=== PATIENT | male | born 2000 | race Asian ===

== ENCOUNTER 2019-04-17 16:25 | Emergency (ER) | payer BC ==
[2019-04-17] MEDS ORDERED: methylPREDNISolone 125 MG* 2 ML VIAL IV ONE (16:32)
[2019-04-17] MEDS ORDERED: Famotidine IV* 10 MG/ML 2 ML (20 mg) IV SLOW PU ONE (16:32)
[2019-04-17] MEDS ORDERED: NS 0.9% 1000 ML** 1,000 ML IV ONE (16:33)
--- NOTE | 2019-04-17 16:36 | ED ---
Allergic Reaction/Systemic - HPI Summary HPI Summary: This patient is a 18 year old M presenting to [facility] by EMS with a chief complaint of allergic reaction. Per triage, pt came to the ER via ambulance for a yellow jacket sting. when EMS arrived on scene the patient was diaphoretic, semi-responsive, pale, and vomiting. He was hypotensive on scene 60's over palp. He was given Epi 0.3 IM and then Benadryl 50 mg IV and IV fluids. pt did not have any airway compromise at any time, but reports feeling a little better since treatment. The patient rates the pain 2/10 in severity. - History of Current Complaint Chief Complaint: EDAllergicReaction Time Seen by Provider: 04/17/19 16:28 Hx Obtained From: EMS Hx From Patient Unobtainable Due To: Other Onset/Duration: Started minutes ago, Still Present Timing: Constant Severity Initially: Moderate Severity Currently: Mild Pain Intensity: 2 Pain Scale Used: 0-10 Numeric Alleviating Factor(s): Epinephrine Associated Signs And Symptoms: Positive: Diaphoresis, Vomiting, Other: - pale, hypotensive, and semi-responsive - Allergies/Home Medications Allergies/Adverse Reactions: Allergies Allergy/AdvReac Type Severity Reaction Status Date / Time wasp Allergy Anaphylatic Uncoded 04/17/19 16:34 Shock Home Medications: Home Medications NK [No Home Medications Reported] 04/17/19 [History Confirmed 04/17/19] PMH/Surg Hx/FS Hx/Imm Hx Previously Healthy: No - LEVEL 5 CAVEAT - PATIENT DOES NOT RESPOND VERBALLY Sensory History: Denies: Hx Legally Blind, Hx Deafness Opthamlomology History: Denies: Hx Legally Blind EENT History: Denies: Hx Deafness - Surgical History Surgical History: None Infectious Disease History: No Infectious Disease History: Denies: Traveled Outside the [place] in Last 30 Days - Family History Known Family History: Negative: Hypertension, Diabetes - Social History Occupation: Student Lives: Dormitory/Roommates Alcohol Use: None Hx Substance Use: No Substance Use Type: Reports: None Hx Tobacco Use: No Smoking Status (MU): Never Smoked Tobacco Review of Systems Positive: Skin Diaphoresis, Other - pale. Negative: Fever Positive: Vomiting All Other Systems Reviewed And Are Negative: Yes Physical Exam - Summary Physical Exam Summary: Appearance: The patient is well-nourished in no acute distress and in no acute pain. Skin: The skin is warm and dry, and skin color reflects adequate perfusion. HEENT: The head is normocephalic and atraumatic. The pupils are equal and reactive. The conjunctivae are clear and without drainage. Nares are patent and without drainage. Mouth reveals moist mucous membranes, and the throat is without erythema and exudate. The external ears are intact. The ear canals are patent and without drainage. The tympanic membranes are intact. Neck: The neck is supple with full range of motion and non-tender. There are no carotid bruits. There is no neck vein distension. Respiratory: Chest is non-tender. Lungs are clear to auscultation and breath sounds are symmetrical and equal. Cardiovascular: Heart is regular rate and rhythm. There is no murmur or rub auscultated. There is no peripheral edema and pulses are symmetrical and equal. Abdomen: The abdomen is soft and non-tender. There are normal bowel sounds heard in all four quadrants and there is no organomegaly palpated. Musculoskeletal: There is no back tenderness noted. Extremities are non-tender with full range of motion. There is good capillary refill. There is no peripheral edema or calf tenderness elicited. Neurological: Patient is alert and oriented to person, place and time. The patient has symmetrical motor strength in all four extremities. Cranial nerves are grossly intact. Deep tendon reflexes are symmetrical and equal in all four extremities. Psychiatric: The patient has an appropriate affect and does not exhibit any anxiety or depression. Triage Information Reviewed: Yes Vital Signs On Initial Exam: Initial Vitals Temp Pulse Resp BP Pulse Ox 97.7 F 70 25 98/57 98 04/17/19 16:29 04/17/19 16:29 04/17/19 16:29 04/17/19 16:29 04/17/19 16:29 Vital Signs Reviewed: Yes Diagnostics - Vital Signs Vital Signs Temp Pulse Resp BP Pulse Ox 04/17/19 16:29 97.7 F 70 25 98/57 98 - Laboratory Lab Statement: Any lab studies that have been ordered have been reviewed, and results considered in the medical decision making process. Re-Evaluation - Re-Evaluation First Eval Re-Evaluation Time: 17:58 Comment: Discussed plan of care with pt. Allergic Reaction Course/Dx - Course Course Of Treatment: Mr. Bauer was absolutely nontoxic in appearance on arrival with stable vitals. He was observed here on the monitor while given additional medications. I suspect that he had a vagal reaction to the sting rather than actually having a systemic allergic reaction and and therefore not prescribing EpiPen for him. I recommended Benadryl if any symptoms come back. - Diagnoses Provider Diagnoses: Bee sting Discharge ED - Sign-Out/Discharge Documenting (check all that apply): Patient Departure - Discharge Patient Received Moderate/Deep Sedation with Procedure: No - Discharge Plan Condition: Stable Disposition: HOME Patient Education Materials: Insect Bite or Sting (ED) Referrals: [facility] [Outside] - 3 Days Additional Instructions: Take Benadryl as needed. Follow up with Primary Care Physician in 2-3 days. RETURN TO THE ED FOR ANY NEW OR WORSENING SYMPTOMS. - Billing Disposition and Condition Condition: STABLE Disposition: Home - Attestation Statements Document Initiated by Lorenzo: Yes Documenting Scribe: Sydni Garner Provider For Whom Lorenzo is Documenting (Include Credential): Dr. Diallo Ellis MD Scribe Attestation: Sydni Silverman scribed for Dr. Diallo Ellis MD on 04/17/19 at 1831. Scribe Documentation Reviewed: Yes Provider Attestation: The documentation as recorded by the Sydni fontana accurately reflects the service I personally performed and the decisions made by me, Dr. Diallo Ellis MD Status of Scrhelen Document: Viewed
[2019-04-17 17:26] VITALS: BP 129/71
== END 2019-04-17 18:22 | disposition home or self-care (01) ==
LOC: ED 16:25
DX: T63.441A Toxic effect of venom of bees, accidental (unintentional), initial encounter (principal); R11.10 Vomiting, unspecified; Y92.9 Unspecified place or not applicable; Z91.030 Bee allergy status
CPT/HCPCS: 96361; 96374; 96375; 99283; J2930